=== PATIENT | female | born 1960 | race Caucasian/White ===

== ENCOUNTER 2017-11-23 09:27 | Emergency (ER) | payer SELFPAY ==
[~2017-11-23] VITALS: Ht 160 cm; Wt 64.4 kg
[2017-11-23 09:34] VITALS: Ht 160 cm; Wt 64.4 kg
[2017-11-23 10:09] LABS: BASOPHILS 0.8 % (0-2); EOSINOPHILS 5.4 % (0-7); HEMATOCRIT 40.8 % (36.0-48.0); HEMOGLOBIN 13.8 g/dL (12-16); IMMATURE GRANULOCYTES 0.3 % (0-5); LYMPHOCYTES 48.9 % (15-50); MCHC 33.8 g/dL (31.0-37.0); MCV 94.7 fL (80.0-100.0); MEAN PLATELET VOLUME 11.1 fL (7.4-10.4); MONOCYTES 7.5 % (2-11); NEUTROPHILS 37.1 % (40-80); PLATELET COUNT 193 10x3/uL (130-400); RBC 4.31 10x6/uL (4.00-5.40); WBC 6.5 10x3/uL (4.8-10.8)
[2017-11-23 10:13] LABS: APPEARANCE CLEAR (CLEAR); BILIRUBIN NEGATIVE (NEGATIVE); COLOR YELLOW (YELLOW); GLUCOSE NEGATIVE (NEGATIVE); KETONE NEGATIVE (NEGATIVE); NITRITE NEGATIVE (NEGATIVE); PROTEIN NEGATIVE (NEGATIVE); UROBILINOGEN NORMAL (NORMAL)
[2017-11-23 10:20] LABS: UDS - AMPHET NEGATIVE QUAL (NEGATIVE); UDS - BARB NEGATIVE QUAL (NEGATIVE); UDS - BENZO NEGATIVE QUAL (NEGATIVE); UDS - COCAINE NEGATIVE QUAL (NEGATIVE); UDS - OPIATE NEGATIVE QUAL (NEGATIVE); UDS - PCP NEGATIVE QUAL (NEGATIVE); UDS - THC NEGATIVE QUAL (NEGATIVE)
[2017-11-23 10:38] LABS: ALKALINE PHOSPHATASE 54 U/L (46-116); ALT (SGPT) 23 U/L (10-68); BILIRUBIN - TOTAL 0.46 mg/dL (0.2-1.3); CALC OSMOLALITY 280 mosm/kg (275-300); CARBON DIOXIDE 29.6 mmol/L (21.0-32.0); CHLORIDE - SERUM 106 mmol/L (98-107); CREATININE - SERUM 0.7 mg/dL (0.6-1.3); GLUCOSE 75 mg/dL (74-106); POTASSIUM - SERUM 3.7 mmol/L (3.5-5.1); PROTEIN - SERUM 7.6 g/dL (6.4-8.2); SODIUM 141 mmol/L (136-145); UREA NITROGEN 16 mg/dL (7-18); eGFR NON AFRICAN AMERICAN > 90 mL/min (90-120)
[2017-11-23 10:56] LABS: CREATINE KINASE 65 UL (21-215); TROPONIN-I < 0.017 ng/mL (0.000-0.060)
[2017-11-23 15:20] VITALS: BP 123/72
== END 2017-11-23 16:15 | disposition left against medical advice (07) ==
LOC: D.ER 09:27
PROVIDERS: Family Medicine
DX: F41.9 Anxiety disorder, unspecified (principal); R42 Dizziness and giddiness; F17.200 Nicotine dependence, unspecified, uncomplicated

== ENCOUNTER 2017-12-28 13:29 | Emergency (ER) | payer MEDICAID ==
[~2017-12-28] VITALS: Ht 160 cm; Wt 65.0 kg
[2017-12-28 14:08] VITALS: Ht 160 cm; Wt 65.0 kg
[2017-12-28 14:41] LABS: BASOPHILS 0.3 % (0-2); EOSINOPHILS 5.5 % (0-7); HEMATOCRIT 37.8 % (36.0-48.0); IMMATURE GRANULOCYTES 0.3 % (0-5); LYMPHOCYTES 35.8 % (15-50); MCH 32.3 pg (26.0-34.0); MCHC 34.4 g/dL (31.0-37.0); MCV 93.8 fL (80.0-100.0); MONOCYTES 7.4 % (2-11); NEUTROPHILS 50.7 % (40-80); PLATELET COUNT 182 10x3/uL (130-400); RBC 4.03 10x6/uL (4.00-5.40); RDW 12.6 % (11.5-14.5); WBC 7.7 10x3/uL (4.8-10.8)
[2017-12-28 15:52] LABS: ALBUMIN 3.9 g/dL (3.4-5.0); ALKALINE PHOSPHATASE 57 U/L (46-116); ALT (SGPT) 22 U/L (10-68); AMYLASE - SERUM 55 U/L (25-115); BILIRUBIN - TOTAL 0.53 mg/dL (0.2-1.3); CALC OSMOLALITY 279 mosm/kg (275-300); CALCIUM 8.7 mg/dL (8.5-10.1); CARBON DIOXIDE 31.5 mmol/L (21.0-32.0); CHLORIDE - SERUM 105 mmol/L (98-107); CREATINE KINASE 69 UL (21-215); CREATININE - SERUM 0.7 mg/dL (0.6-1.3); GLUCOSE 93 mg/dL (74-106); LIPASE 228 U/L (73-393); POTASSIUM - SERUM 3.9 mmol/L (3.5-5.1); PROTEIN - SERUM 7.2 g/dL (6.4-8.2); SODIUM 139 mmol/L (136-145); TROPONIN-I < 0.017 ng/mL (0.000-0.060); UREA NITROGEN 19 mg/dL (7-18); eGFR NON AFRICAN AMERICAN > 90 mL/min (90-120)
[2017-12-28 16:34] LABS: APPEARANCE HAZY (CLEAR); BILIRUBIN NEGATIVE (NEGATIVE); COLOR YELLOW (YELLOW); GLUCOSE NEGATIVE (NEGATIVE); KETONE NEGATIVE (NEGATIVE); NITRITE NEGATIVE (NEGATIVE); PROTEIN NEGATIVE (NEGATIVE); SPECIFIC GRAVITY 1.015 (1.005-1.020); UROBILINOGEN NORMAL (NORMAL)
[2017-12-28 16:35] LABS: BACTERIA FEW /hpf (NONE SEEN); EPITHELIAL CELLS 0-5 /hpf (0-5); MUCUS <1+ /lpf (NONE SEEN); RED CELLS - URINE OCC /hpf (0-5); WHITE CELLS - URINE 0-5 /hpf (0-5)
[2017-12-28] MEDS ORDERED: PROTONIX40 MG PO (20:58)
[2017-12-28 21:07] VITALS: BP 110/72
== END 2017-12-28 21:07 | disposition home or self-care (01) ==
LOC: D.ER 13:29
PROVIDERS: Family Medicine
DX: R10.9 Unspecified abdominal pain (principal); K29.70 Gastritis, unspecified, without bleeding; G40.909 Epilepsy, unspecified, not intractable, without status epilepticus; F17.200 Nicotine dependence, unspecified, uncomplicated

== ENCOUNTER 2018-03-14 13:04 | Emergency (ER) | payer OTHER ==
[~2018-03-14] VITALS: Ht 160 cm; Wt 66.8 kg
[~2018-03-14 13:04] MED LIST: PROTONIX40 MG PO
[2018-03-14 13:22] VITALS: BP 114/73; Ht 160 cm; Wt 66.8 kg
== END 2018-03-14 13:50 | disposition left against medical advice (07) ==
LOC: D.ER 13:04
DX: M25.512 Pain in left shoulder (principal)

== ENCOUNTER 2018-06-22 12:41 | Emergency (ER) | payer MEDICAID ==
[~2018-06-22] VITALS: Ht 160 cm; Wt 65.5 kg
[2018-06-22 13:06] VITALS: Ht 160 cm; Wt 65.5 kg
[2018-06-22] MEDS ORDERED: VOLTAREN75 MG PO (15:53)
[2018-06-22 16:18] VITALS: BP 107/73
== END 2018-06-22 16:16 | disposition home or self-care (01) ==
LOC: D.ER 12:41
DX: R07.89 Other chest pain (principal); F17.200 Nicotine dependence, unspecified, uncomplicated

== ENCOUNTER 2018-12-10 08:16 | Emergency (ER) | payer MEDICAID ==
[~2018-12-10] VITALS: Ht 160 cm; Wt 61.4 kg
[~2018-12-10 08:16] MED LIST changes: +VOLTAREN75 MG PO
[2018-12-10 08:19] VITALS: Ht 160 cm; Wt 61.4 kg
[2018-12-10] MEDS ORDERED: HYDROCODON-ACE1 EA10 PO (09:11)
[2018-12-10 09:20] VITALS: BP 122/68
== END 2018-12-10 09:21 | disposition home or self-care (01) ==
LOC: D.ER 08:16
DX: S92.502A Displaced unspecified fracture of left lesser toe(s), initial encounter for closed fracture (principal); X58.XXXA Exposure to other specified factors, initial encounter; Y93.89 Activity, other specified; Y92.89 Other specified places as the place of occurrence of the external cause

== ENCOUNTER 2019-02-28 09:09 | Inpatient (IN) | payer MEDICAID ==
[~2019-02-28] VITALS: Ht 160 cm; Wt 62.6 kg
[~2019-02-28 09:09] MED LIST changes: +HYDROCODON-ACE1 EA10 PO
[2019-02-28 09:50] LABS: BASOPHILS 0.2 % (0-2); EOSINOPHILS 1.2 % (0-7); HEMATOCRIT 42.9 % (36.0-48.0); HEMOGLOBIN 14.5 g/dL (12-16); IMMATURE GRANULOCYTES 0.2 % (0-5); MCH 32.8 pg (26.0-34.0); MCHC 33.8 g/dL (31.0-37.0); MCV 97.1 fL (80.0-100.0); MEAN PLATELET VOLUME 10.6 fL (7.4-10.4); MONOCYTES 7.8 % (2-11); NEUTROPHILS 67.6 % (40-80); PLATELET COUNT 218 10x3/uL (130-400); RBC 4.42 10x6/uL (4.00-5.40); RDW 12.4 % (11.5-14.5); WBC 8.9 10x3/uL (4.8-10.8)
[2019-02-28 09:55] LABS: APPEARANCE CLEAR (CLEAR); BILIRUBIN NEGATIVE (NEGATIVE); COLOR YELLOW (YELLOW); GLUCOSE NEGATIVE (NEGATIVE); KETONE NEGATIVE (NEGATIVE); NITRITE NEGATIVE (NEGATIVE); PROTEIN NEGATIVE (NEGATIVE); SPECIFIC GRAVITY 1.015 (1.005-1.020); UROBILINOGEN NORMAL (NORMAL)
[2019-02-28 10:07] LABS: ALBUMIN 3.6 g/dL (3.4-5.0); ALKALINE PHOSPHATASE 54 U/L (46-116); ALT (SGPT) 28 U/L (10-68); BILIRUBIN - TOTAL 0.47 mg/dL (0.2-1.3); CALC OSMOLALITY 280 mosm/kg (275-300); CALCIUM 8.6 mg/dL (8.5-10.1); CARBON DIOXIDE 24.6 mmol/L (21.0-32.0); CHLORIDE - SERUM 106 mmol/L (98-107); CREATININE - SERUM 0.6 mg/dL (0.6-1.3); GLUCOSE 105 mg/dL (74-106); POTASSIUM - SERUM 3.7 mmol/L (3.5-5.1); PROTEIN - SERUM 7.2 g/dL (6.4-8.2); SODIUM 140 mmol/L (136-145); UREA NITROGEN 19 mg/dL (7-18); eGFR NON AFRICAN AMERICAN > 90 mL/min (90-120)
[2019-02-28 10:09] LABS: AMYLASE - SERUM 36 U/L (25-115); LIPASE 137 U/L (73-393); TROPONIN-I < 0.017 ng/mL (0.000-0.060)
--- NOTE | 2019-02-28 10:09 | NUR ---
LIGHTS DIMMED FOR COMFORT, PT GIVEN HEAT PACK REQUESTED FOR HER ABD PAIN. CALL LIGHT IN REACH, FAMILY AT BEDSIDE. WILL CONTINUE TO MONITOR.
--- NOTE | 2019-02-28 10:36 | NUR ---
PT'S MOTHER INTERRUPTED TRIAGE IN NEIGHBOR ROOM TO INFORM THIS NURSE THAT PT "IS IN A LOT OF PAIN AND NEEDS PAIN MEDICINE." PT'S MOTHER'S REQUEST FOR PAIN MEDICATION FOR PT RELAYED TO EDP.
--- NOTE | 2019-02-28 10:43 | NUR ---
ANSWERED PT'S CALL LIGHT, PT STATED, "WHEN WILL YOU BE IN HERE TO ADMINISTER PAIN MEDICATION." THIS NURSE REPLIED, "I AM UNABLE TO ADMINISTER PAIN MEDICATION WITHOUT A PHYSICIAN'S ORDER, BUT I DID NOTIFY HIM OF THE REQUEST FOR MEDICATION." PT STATED, "YOU DON'T HAVE TO BE SO SNAPPY ABOUT IT." THIS NURSE EXPLAINED THAT I DID NOT INTEND FOR MY RESPONSE TO BE THAT WAY, I WAS EXPLAINING WHY I HAD NOT ADMINISTERED PAIN MEDICATION SHE REQUESTED.
--- NOTE | 2019-02-28 11:39 | NUR ---
FOLLOWING IV MORPHINE AND ZOFRAN, PT STATES THAT HER PAIN WAS "GETTING BETTER." PT HEARD SCREAMING FROM HER ROOM, WALKED IN, PT LYING IN BED, ROCKING FROM SIDE TO SIDE. PT STATES THAT HER PAIN IS NOW WORSE THAN PRIOR TO MORPHINE. PT'S MOTHER AT BEDSIDE DEMANDING THAT THIS NURSE "GIVE HER SOMETHING." WHEN THIS NURSE EXITED ROOM AFTER MEDS, PT WAS CALM, RESPIRATIONS EVEN AND UNLABORED AND NO SIGNS OF DISTRESS. PT ADMITTED TO FEELING RELIEF. EDP CALLED TO BEDSIDE TO SEE PT. ORDERS FOR ADDITIONAL PAIN MEDICATION RECEIVED.
[2019-02-28 11:49] VITALS: BP 123/72
[2019-02-28 12:01] VITALS: BP 133/83
--- NOTE | 2019-02-28 12:51 | NUR ---
PT BACK TO ED AT THIS TIME.
--- NOTE | 2019-02-28 13:26 | NUR ---
PT LYING IN BED, RESPIRATIONS EVEN AND UNLABORED. NO SIGNS OF DISTRESS. CALL LIGHT IN REACH, IV INFUSING ORDERED WITHOUT SIGNS OF INFILTRATION. FAMILY MEMBER AT BEDSIDE. WILL CONTINUE TO MONITOR.
--- NOTE | 2019-02-28 14:22 | NUR ---
ATTEMPTED TO CALL REPORT AT THIS TIME, INFORMED ROOM #2206, ASSIGNED AT 1411 IS CURRENTLY DIRTY. EVS TO CLEAN.
[2019-02-28] MEDS ORDERED: ZOLOFT50 MG PO (15:12)
[2019-02-28] MEDS ORDERED: ESTRACE 0.5 MG0.5 MG PO (15:12)
--- NOTE | 2019-02-28 15:35 | MORECARE ---
CASE MANAGEMENT DISCHARGE SUMMARY PATIENT: SAE MALHOTRA UNIT: [id number] ADM DATE: 02/28/19 AGE: 58 : 58 SEX: F ROOM/BED: D.2206 AUTHOR: VAMSI JC PHYSICIAN: REFERRING PHYSICIAN: SHANIQUE ARVIZU MD DATE OF SERVICE: 02/28/19 Discharge Plan Patient Name: SAE MALHOTRA [facility] [facility] 1960 Planned Disposition: Home Anticipated Discharge Date: 03/02/19 Discharge Date: Expected LOS: 2 Initial Reviewer: [email or web address] Initial Review Date: 02/28/2019 Generated: 02/28/19 4:35 pm DCPIA - Discharge Planning Initial Assessment Updated by [email or web address]: Nae Grace on 02/28/19 3:30 pm * Is the patient Alert and Oriented? Yes * PCP Dr. Dozier * Pharmacy [facility] * Preadmission Environment Home with Family * ADLs Independent * Equipment None * List name and contact numbers for known caregivers / representatives who currently or will assist patient after discharge: Gudelia Allen [facility] [phone] * Verbal permission to speak to the caregivers and representatives has been obtained from the patient. Yes * Community resources currently utilized None * Additional services required to return to the preadmission environment? No * Can the patient safely return to the preadmission environment? Yes * Has this patient been hospitalized within the prior 30 days at any hospital? No Patient Name: SAE MALHOTRA Page [id number] at 1535 All edits/amendments must be made on the electronic document DICTATION DATE: 02/28/19 1535 HAND TAPPER: KERI 02/28/19 1535 RPT#: [id number] DC DATE: STATUS: ADM IN [facility] [address] [place] [address] END OF REPORT
[2019-02-28 15:42] VITALS: BP 95/65; BMI 24.5
--- NOTE | 2019-02-28 15:47 | NUR ---
PATIENT RECIEVED FROM ER WITH DX OF MEDARDO. REPORTS RLQ PAIN FOR 4 DAYS WITH INTERMITENT N/V, PATIENT ALSO REPORTS CONSTIPATION. HAD BM YESTERDAY AFTER TAKING A LAXATIVE. PATIENT IS ALERT AND ORIENTED. PATIENT HAS NO N/V AT THIS TIME. PATIENT IS NPO. ORIENTED TO ROOM WITH CALL LIGHT IN REACH
--- NOTE | 2019-02-28 15:48 | MORECARE ---
CASE MANAGEMENT DISCHARGE SUMMARY PATIENT: SAE MALHOTRA UNIT: [id number] ADM DATE: 02/28/19 AGE: 58 : 58 SEX: F ROOM/BED: D.2206 AUTHOR: VAMSI JC PHYSICIAN: REFERRING PHYSICIAN: SHANIQUE ARVIZU MD DATE OF SERVICE: 02/28/19 Discharge Plan Patient Name: SAE MALHOTRA [facility]:[place] : 1960 Planned Disposition: Home Anticipated Discharge Date: 03/02/19 Discharge Date: Expected LOS: 2 Initial Reviewer: [email or web address] Initial Review Date: 02/28/2019 Generated: 02/28/19 4:48 pm DCP- Discharge Planning Updated by [email or web address]: Nae Grace on 02/28/19 2:[address] DC PLAN: Return home independently. ANTICIPATED DC NEEDS: Denied known dc needs. CM met with patient to complete initial dc planning assessment. Patient upset and being short with her answers. She received a phone call from a hospice company and was trying to figure a way to get her mother home. She got very upset on the phone and threw her wallet down on the bed while her mother was giving me her corrected phone number. CM attempted to try to help the patient figure out a way to get her mother home. The patient told me I should have not been ease dropping on her conversation with the hospice company. CM attempted to explain I want to try to help get her mother home. She kept getting angrier with any attempts to help her. She stated she had taken care of her mother for 2 years but hospice gets all the money for taking care of her. She stated she never gets assistance, her mother tried to say something and the patient put her hand up in her mother's face and told her to either be quite or leave the room. At his point cm asked assessment questions and left the room. CM verified patient's address, phone number, and emergency contact phone numbers. Patient lives at home and her mother lives with her. She is the primary cg to her mother. At discharge patient plans to return home and feels this is a safe discharge. Patient denied known discharge needs at this time. Patient reports she drove herself here and she will transport herself home at time of discharge. CM will continue to follow and will assist as needed with dc plans/needs. Nae Grace RN, [facility] DCPIA - Discharge Planning Initial Assessment Updated by [id number]: Nae Grace on 02/28/19 3:30 pm * Is the patient Alert and Oriented? Yes * PCP Dr. Dozier * Pharmacy [facility] * Preadmission Environment Home with Family * ADLs Independent * Equipment None * List name and contact numbers for known caregivers / representatives who currently or will assist patient after discharge: Gudelia Allen [facility] [phone] * Verbal permission to speak to the caregivers and representatives has been obtained from the patient. Yes * Community resources currently utilized None * Additional services required to return to the preadmission environment? No * Can the patient safely return to the preadmission environment? Yes * Has this patient been hospitalized within the prior 30 days at any hospital? No Last DP export: 02/28/19 2:35 p Patient Name: SAE MALHOTRA Page [id number] at 1548 All edits/amendments must be made on the electronic document DICTATION DATE: 02/28/191547 DIRECTOR OF CORPORATE MARKETING: KERI 02/28/191547 RPT#: [id number] DC DATE: STATUS: ADM IN [facility] [address] [place] [address] END OF REPORT
--- NOTE | 2019-02-28 20:00 | NUR ---
ALERT RESTING IN BED REPORTS HAVING NAUSEA AND VOMITING, WITH ABD PAIN,ENCOURAGED TO TRY AND RELAX , SLOW DEEP BREATH, STATES SO MUCH GOING ON THAT ITS HARD AND SHE IS VERY ANXIOUS ABOUT EVERYTHING, SEE SHIFT ASSESSMENT CALL LIGHT IN REACH
[2019-02-28 20:49] VITALS: BP 91/60
[2019-03-01 01:12] VITALS: BP 100/60
[2019-03-01 05:03] VITALS: BP 108/64
[2019-03-01 05:39] LABS: BASOPHILS 0.3 % (0-2); EOSINOPHILS 1.6 % (0-7); HEMATOCRIT 36.6 % (36.0-48.0); HEMOGLOBIN 11.9 g/dL (12-16); IMMATURE GRANULOCYTES 0.4 % (0-5); LYMPHOCYTES 20.7 % (15-50); MCH 32.1 pg (26.0-34.0); MCHC 32.5 g/dL (31.0-37.0); MCV 98.7 fL (80.0-100.0); MEAN PLATELET VOLUME 11.4 fL (7.4-10.4); MONOCYTES 9.7 % (2-11); NEUTROPHILS 67.3 % (40-80); PLATELET COUNT 179 10x3/uL (130-400); RBC 3.71 10x6/uL (4.00-5.40); RDW 12.5 % (11.5-14.5); WBC 7.6 10x3/uL (4.8-10.8)
[2019-03-01 05:50] LABS: CALC OSMOLALITY 269 mosm/kg (275-300); CALCIUM 7.6 mg/dL (8.5-10.1); CARBON DIOXIDE 24.2 mmol/L (21.0-32.0); CHLORIDE - SERUM 109 mmol/L (98-107); CREATININE - SERUM 0.5 mg/dL (0.6-1.3); GLUCOSE 96 mg/dL (74-106); POTASSIUM - SERUM 3.9 mmol/L (3.5-5.1); SODIUM 134 mmol/L (136-145); UREA NITROGEN 17 mg/dL (7-18); eGFR NON AFRICAN AMERICAN > 90 mL/min (90-120)
--- NOTE | 2019-03-01 07:55 | NUR ---
AAOX4. "I WANT SOME REGULAR FOOD." TALKED WITH JAMIE PRIETO WHO UPGRADED DIET. NO S/S OF ACUTE DISTRESS. CL IN PLACE.
[2019-03-01 09:23] VITALS: BP 96/61
[2019-03-01 13:49] VITALS: BP 90/55
[2019-03-01 14:19] VITALS: Ht 160 cm; Wt 62.6 kg
--- NOTE | 2019-03-01 15:55 | NUR ---
WALKED INTO PT ROOM. PT TEARFUL. ANXIOUS. "SOMETHING IS WRONG MY STOMACH IS HURTING AGAIN." DENIES N/V. DILAUDID GIVEN PER MD ORDER. SPOKE WITH NICK ABOUT PT COMPLAINT. NO NEW ORDERS AT THIS TIME. DECREASE DIET TO CLD. NICOTINE PATCH ORDERED PER PT REQUEST. NO S/S OF ACUTE DISTRESS. CL IN PLACE.
[2019-03-01 17:47] VITALS: BP 85/54
--- NOTE | 2019-03-01 18:39 | NUR ---
PT RESTING IN BED. DENIES ANY NEEDS. NO S/S OF ACUTE DISTRESS. CL IN PLACE.
[2019-03-01 20:53] VITALS: BP 130/60
[2019-03-02 00:51] VITALS: BP 99/68
--- NOTE | 2019-03-02 04:46 | NUR ---
1900) REC'D DURING WALKING ROUNDS CHGE OF SHIFT VERY ANXIOUS AT PRESENT TIME STATES MY MOM IS ON HOSPICE AND I'M UP HERE. WILL CONTINUE TO MONITOR FOR ANY CHGES IN CURRENT STATUS AND FOLLOW CURRENT PLAN OF CARE
--- NOTE | 2019-03-02 04:47 | NUR ---
I have reviewed this patient and I concur with the Shift Assessment completed by the Licensed Practical Nurse today this shift.
[2019-03-02 05:06] VITALS: BP 102/60
[2019-03-02 07:02] LABS: CALC OSMOLALITY 286 mosm/kg (275-300); CALCIUM 7.8 mg/dL (8.5-10.1); CARBON DIOXIDE 27.8 mmol/L (21.0-32.0); CHLORIDE - SERUM 111 mmol/L (98-107); CREATININE - SERUM 0.5 mg/dL (0.6-1.3); GLUCOSE 91 mg/dL (74-106); POTASSIUM - SERUM 3.7 mmol/L (3.5-5.1); SODIUM 144 mmol/L (136-145); UREA NITROGEN 13 mg/dL (7-18); eGFR NON AFRICAN AMERICAN > 90 mL/min (90-120)
--- NOTE | 2019-03-02 07:49 | NUR ---
PT SITTING UP IN BED. RESP EVEN AND UNLABORED. REPORTS PAIN 6/10 AT THIS TIME. DISCUSSED NEXT TIME PAIN MEDICATION COULD BE ADMINISTERED. PT VOICES UNDERSTANDING. IV TO LEFT AC WITH NS @ 125ML/HR INFUSING VIA PUMP. SITE WITHOUT REDNESS OR EDEMA. DENIES FURTHER NEEDS AT THIS TIME. CL WITHIN REACH. ENCOURAGED TO CALL WITH NEEDS. CONTINUE POC
[2019-03-02 07:53] VITALS: BP 125/71
[2019-03-02 07:53] LABS: HEMOGLOBIN 12.9 g/dL (12-16); LYMPHOCYTES 32.1 % (15-50); MCH 32.9 pg (26.0-34.0); MCHC 33.9 g/dL (31.0-37.0); MCV 96.9 fL (80.0-100.0); MEAN PLATELET VOLUME 11.3 fL (7.4-10.4); NEUTROPHILS 58.7 % (40-80); PLATELET COUNT 133 10x3/uL (130-400); RBC 3.92 10x6/uL (4.00-5.40); RDW 12.4 % (11.5-14.5); WBC 6.2 10x3/uL (4.8-10.8)
[2019-03-02 12:23] VITALS: BP 105/63
[2019-03-02 17:01] VITALS: BP 104/55
[2019-03-02 20:00] VITALS: BP 116/68
[2019-03-03] VITALS: BP 121/64
[2019-03-03 04:00] VITALS: BP 100/65
[2019-03-03 06:01] LABS: BASOPHILS 0.7 % (0-2); EOSINOPHILS 4.3 % (0-7); HEMATOCRIT 36.1 % (36.0-48.0); HEMOGLOBIN 11.9 g/dL (12-16); IMMATURE GRANULOCYTES 0.2 % (0-5); LYMPHOCYTES 47.2 % (15-50); MCH 32.2 pg (26.0-34.0); MCV 97.6 fL (80.0-100.0); MEAN PLATELET VOLUME 11.2 fL (7.4-10.4); MONOCYTES 7.9 % (2-11); NEUTROPHILS 39.7 % (40-80); RDW 12.4 % (11.5-14.5); WBC 5.8 10x3/uL (4.8-10.8)
[2019-03-03 06:18] LABS: PLATELET COUNT 184 10x3/uL (130-400)
[2019-03-03 06:23] LABS: CALC OSMOLALITY 289 mosm/kg (275-300); CARBON DIOXIDE 27.2 mmol/L (21.0-32.0); CHLORIDE - SERUM 110 mmol/L (98-107); CREATININE - SERUM 0.6 mg/dL (0.6-1.3); GLUCOSE 97 mg/dL (74-106); POTASSIUM - SERUM 3.4 mmol/L (3.5-5.1); SODIUM 145 mmol/L (136-145); UREA NITROGEN 14 mg/dL (7-18); eGFR NON AFRICAN AMERICAN > 90 mL/min (90-120)
[2019-03-03 06:44] LABS: CALCIUM 8.4 mg/dL (8.5-10.1)
[2019-03-03 08:15] VITALS: BP 119/76
--- NOTE | 2019-03-03 09:38 | NUR ---
PT SITTING UP IN BED NO ACUTE DISTRESS. REPORTS PAIN 2/10 AND VOICES WISHES TO DISCHARGE HOME. SALINE LOC TO LEFT FOREARM SITE WITHOUT REDNESS OR EDEMA. DENIES FURTHER NEEDS AT THIS TIME. CL WITHIN REACH. ENCOURAGED TO CALL WITH NEEDS. CONTINUE POC
[2019-03-03] MEDS ORDERED: LEVAQUIN750 MG PO (10:18)
[2019-03-03] MEDS ORDERED: FLAGYL500 MG PO (10:18)
--- NOTE | 2019-03-03 11:45 | MORECARE ---
CASE MANAGEMENT DISCHARGE SUMMARY PATIENT: SAE MALHOTRA UNIT: [id number] ADM DATE: 02/28/19 AGE: 58 : 58 SEX: F ROOM/BED: D.2206 AUTHOR: HOSEA,DOC PHYSICIAN: REFERRING PHYSICIAN: SHANIQUE ARVIZU MD DATE OF SERVICE: 03/03/19 Discharge Plan Patient Name: SAE MALHOTRA Facility: [facility]:[place] : 1960 Planned Disposition: Home Anticipated Discharge Date: 03/02/19 Discharge Date: Expected LOS: 2 Initial Reviewer: [email or web address] Initial Review Date: 02/28/2019 Generated: 03/03/19 12:45 pm Comments DCP- Discharge Planning Updated by [email or web address]: Vielka Mobley on 03/03/19 10:[address] Patient Name: SAE MALHOTRA Encounter No: [id number] : 1960 Primary Insurance: [place] [employer] Anticipated DC Date: 03-02-2019 Planned Disposition: Home External Planned Provider: : DCP follow-up note: Patient and family in agreement with discharge plan. No changes to plan. Case management will follow and assist as needed. Vielka Mobley DCP- Discharge Planning Updated by [email or web address]: Nae Grace on 02/28/19 2:[address] DC PLAN: Return home independently. ANTICIPATED DC NEEDS: Denied known dc needs. CM met with patient to complete initial dc planning assessment. Patient upset and being short with her answers. She received a phone call from a hospice [employer] and was trying to figure a way to get her mother home. She got very upset on the phone and threw her wallet down on the bed while her mother was giving me her corrected phone number. CM attempted to try to help the patient figure out a way to get her mother home. The patient told me I should have not been ease dropping on her conversation with the hospice company. CM attempted to explain I want to try to help get her mother home. She kept getting angrier with any attempts to help her. She stated she had taken care of her mother for 2 years but hospice gets all the money for taking care of her. She stated she never gets assistance, her mother tried to say something and the patient put her hand up in her mother's face and told her to either be quite or leave the room. At his point cm asked assessment questions and left the room. CM verified patient's address, phone number, and emergency contact phone numbers. Patient lives at home and her mother lives with her. She is the primary cg to her mother. At discharge patient plans to return home and feels this is a safe discharge. Patient denied known discharge needs at this time. Patient reports she drove herself here and she will transport herself home at time of discharge. CM will continue to follow and will assist as needed with dc plans/needs. Nae Grace RN, [facility] DCPIA - Discharge Planning Initial Assessment Updated by [id number]: Nae Grace on 02/28/19 3:30 pm * Is the patient Alert and Oriented? Yes * PCP Dr. Dozier * Pharmacy [facility] * Preadmission Environment Home with Family * ADLs Independent * Equipment None * List name and contact numbers for known caregivers / representatives who currently or will assist patient after discharge: Gudelia Allen - mother - [phone] * Verbal permission to speak to the caregivers and representatives has been obtained from the patient. Yes * Community resources currently utilized None * Additional services required to return to the preadmission environment? No * Can the patient safely return to the preadmission environment? Yes * Has this patient been hospitalized within the prior 30 days at any hospital? No Last DP export: 02/28/19 2:48 p Patient Name: SAE MALHOTRA Page [id number] at 1145 All edits/amendments must be made on the electronic document DICTATION DATE: 03/03/19 1145 SPEEDBOAT DRIVER: KERI 03/03/19 1145 RPT#: [id number] DC DATE: STATUS: ADM IN [facility] [address] [place] [address] END OF REPORT
--- NOTE | 2019-03-06 11:32 | MORECARE ---
CASE MANAGEMENT DISCHARGE SUMMARY PATIENT: SAE MALHOTRA UNIT: [id number] ADM DATE: 02/28/19 AGE: 58 : 58 SEX: F ROOM/BED: D.2206 AUTHOR: HOSEADOC PHYSICIAN: REFERRING PHYSICIAN: SHANIQUE ARVIZU MD DATE OF SERVICE: 03/06/19 Discharge Plan Patient Name: SAE MALHOTRA Facility: [facility]:[place] : 1960 Planned Disposition: Home Anticipated Discharge Date: 03/02/19 Discharge Date: 03/03/2019 Expected LOS: 2 Initial Reviewer: [email or web address] Initial Review Date: 02/28/2019 Generated: 03/06/19 12:32 pm Comments DCP- Discharge Planning Updated by [email or web address]: Vielka Mobley on 03/03/19 10:[address] Patient Name: SAE MALHOTRA Encounter No: [id number] : 1960 Primary Insurance: [employer] [place] [employer] Anticipated DC Date: 03-02-2019 Planned Disposition: Home External Planned Provider: : DCP follow-up note: Patient and family in agreement with discharge plan. No changes to plan. Case management will follow and assist as needed. Vielka Mobley DCP- Discharge Planning Updated by [email or web address]: Nae Grace on 02/28/19 2:[address] DC PLAN: Return home independently. ANTICIPATED DC NEEDS: Denied known dc needs. CM met with patient to complete initial dc planning assessment. Patient upset and being short with her answers. She received a phone call from a hospice [employer] and was trying to figure a way to get her mother home. She got very upset on the phone and threw her wallet down on the bed while her mother was giving me her corrected phone number. CM attempted to try to help the patient figure out a way to get her mother home. The patient told me I should have not been ease dropping on her conversation with the hospice company. CM attempted to explain I want to try to help get her mother home. She kept getting angrier with any attempts to help her. She stated she had taken care of her mother for 2 years but hospice gets all the money for taking care of her. She stated she never gets assistance, her mother tried to say something and the patient put her hand up in her mother's face and told her to either be quite or leave the room. At his point cm asked assessment questions and left the room. CM verified patient's address, phone number, and emergency contact phone numbers. Patient lives at home and her mother lives with her. She is the primary cg to her mother. At discharge patient plans to return home and feels this is a safe discharge. Patient denied known discharge needs at this time. Patient reports she drove herself here and she will transport herself home at time of discharge. CM will continue to follow and will assist as needed with dc plans/needs. Nae Grace RN, [facility] DCPIA - Discharge Planning Initial Assessment Updated by [email or web address]: Nae Grace on 02/28/19 3:30 pm * Is the patient Alert and Oriented? Yes * PCP Dr. Dozier * Pharmacy [facility] * Preadmission Environment Home with Family * ADLs Independent * Equipment None * List name and contact numbers for known caregivers / representatives who currently or will assist patient after discharge: Gudelia Allen - mother - [phone] * Verbal permission to speak to the caregivers and representatives has been obtained from the patient. Yes * Community resources currently utilized None * Additional services required to return to the preadmission environment? No * Can the patient safely return to the preadmission environment? Yes * Has this patient been hospitalized within the prior 30 days at any hospital? No Last DP export: 03/03/19 10:45 Patient Name: SAE MALHOTRA Page [id number] at 1132 All edits/amendments must be made on the electronic document DICTATION DATE: 03/06/19 1132 MATERIALS ANALYST: KERI 03/06/19 1132 RPT#: [id number] DC DATE:03/03/19 STATUS: DIS IN [facility] [address] [place] [address] END OF REPORT
== END 2019-03-03 12:56 | disposition home or self-care (01) | DRG 394 ==
LOC: D.ER 09:09 → D.MS 13:40
PROVIDERS: Family Medicine; ADMIT Internal Medicine Nephrology; ATTEND Internal Medicine Nephrology
DX: K55.9 Vascular disorder of intestine, unspecified (principal); A09 Infectious gastroenteritis and colitis, unspecified; F41.9 Anxiety disorder, unspecified; K59.09 Other constipation; Z72.0 Tobacco use